=== PATIENT | female | born 1970 ===

== ENCOUNTER 2024-10-12 10:34 | Emergency (ER) | payer SELFPAY | END 2024-10-12 11:31 | disposition home or self-care (01) | LOC: ERS 10:34 | DX: J06.9 Acute upper respiratory infection, unspecified (principal); B97.89 Other viral agents as the cause of diseases classified elsewhere; I10 Essential (primary) hypertension; J45.901 Unspecified asthma with (acute) exacerbation; G47.30 Sleep apnea, unspecified; Z87.891 Personal history of nicotine dependence; Z79.51 Long term (current) use of inhaled steroids; Z79.899 Other long term (current) drug therapy | CPT/HCPCS: 87428; 99283 ==